=== PATIENT | female | born 1945 | race Caucasian/White ===

== ENCOUNTER 2020-02-17 12:03 | Emergency (ER) | payer MEDICARE ==
[~2020-02-17] VITALS: Ht 170.2 cm; Wt 90.0 kg
[2020-02-17 12:24] VITALS: BP 163/74
[2020-02-17 14:22] LABS: BASOPHILS % (AUTO) 0.4 % (0-1); EOSINOPHILS # (AUTO) 0.1 X10'3 (0-0.9); EOSINOPHILS % (AUTO) 1.5 % (0-6); HEMATOCRIT 41.4 % (35.0-45.0); HEMOGLOBIN 13.7 g/dl (12.0-16.0); LYMPHOCYTES # (AUTO) 1.3 X10'3 (1.1-4.8); LYMPHOCYTES % (AUTO) 18.5 % (21-51); MEAN CORPUSCULAR HEMOGLOBIN 30.8 PG (27.0-31.0); MEAN CORPUSCULAR VOLUME 93.3 FL (78-98); MEAN PLATELET VOLUME 10.8 FL (7.4-10.4); MONOCYTES # (AUTO) 0.6 X10'3 (0-0.9); MONOCYTES % (AUTO) 7.8 % (2-12); NEUTROPHILS # (AUTO) 5.2 X10'3 (1.8-7.7); NEUTROPHILS % (AUTO) 71.8 % (42-75); PLATELET COUNT 158 X10'3 (140-440); RED BLOOD COUNT 4.44 X10'6 (4.20-5.60); RED CELL DISTRIBUTION WIDTH 14.9 % (11.5-14.5); WHITE BLOOD COUNT 7.3 X10'3 (4.5-11.0)
[2020-02-17 14:35] LABS: ALANINE AMINOTRANSFERASE 42 U/L (12-78); ALBUMIN 3.9 G/DL (3.4-5.0); ALKALINE PHOSPHATASE 120 IU/L (46-116); ANION GAP 9 (8-16); ASPARTATE AMINO TRANSFERASE 67 U/L (10-37); BILIRUBIN,TOTAL 0.7 MG/DL (0.1-1.0); BLOOD UREA NITROGEN 28 MG/DL (7-18); BUN/CREATININE RATIO 34.6 (6.6-38.0); CALCIUM 9.4 MG/DL (8.5-10.1); CHLORIDE 105 MMOL/L (99-107); CREATININE 0.81 MG/DL (0.40-0.90); GLUCOSE 99 MG/DL (70-104); POTASSIUM 3.7 MMOL/L (3.5-5.1); SODIUM 143 MMOL/L (135-145); TOTAL CARBON DIOXIDE 28.7 MMOL/L (24-32); TOTAL PROTEIN 7.9 G/DL (6.4-8.2); eGFR 69 ML/MIN
--- NOTE | 2020-02-17 14:54 | NUR ---
pt is 74 yo female BIB family, pt said she started new parkinson medication 3-4 days ago and was referred to ER by PMD to make sure medication was working right, pt also went on to say her is seeing a 16yo girl, "I don't know her name but sometimes she comes in our house and I tell her to leave...I don't even know her name", pt has h/o parkinson's and admits to having hallucinations sometimes "but the 16 yo is real...", pt denies SI/HI thoughts/plans
[2020-02-17 14:57] LABS: LARGE PLATELETS FEW; PLATELET ESTIMATE NORMAL
--- NOTE | 2020-02-17 15:38 | NUR ---
called pt's , Nirmal at [phone], for med list, he is not sure what she takes, said a home health nurse helps her with meds she takes, tried calling [facility] on [facility], they only had eye gtts, and resperidone 0.25mg 1 tab q day
--- NOTE | 2020-02-17 15:39 | NUR ---
VICENTE, , CORRECT PHONE NUMBER IS [phone]
[2020-02-17] MEDS ORDERED: risperiDONE 0.5mg tablet PO ONE (16:25)
[2020-02-17] MEDS ORDERED: RISP0.5T74 PO (16:31)
--- NOTE | 2020-02-17 17:07 | NUR ---
WILL BE HERE TO PICK PT UP SOON
[2020-02-20] MEDS ORDERED: GABA-530 PO (13:05)
[2020-02-20] MEDS ORDERED: CYCL1DRO2 EACHEYE (13:05)
[2020-02-20] MEDS ORDERED: LIOT25TA12 PO (13:05)
[2020-02-20] MEDS ORDERED: RISP0.5T3 PO (13:05)
[2020-02-20] MEDS ORDERED: LISI-600 PO (13:05)
[2020-02-20] MEDS ORDERED: HYDR12.55 PO (13:05)
[2020-02-20] MEDS ORDERED: LATA2.5D2 EACHEYE (13:05)
[2020-02-20] MEDS ORDERED: OXYB10TA30 PO (13:41)
[2020-02-20] MEDS ORDERED: PRAM0.258 PO (13:41)
[2020-02-20] MEDS ORDERED: BACL5TAB PO (13:41)
[2020-02-20] MEDS ORDERED: CARB1TAB36 PO (13:41)
== END 2020-02-17 17:46 | disposition home or self-care (01) ==
LOC: ER 12:04
DX: F22 Delusional disorders (principal); I10 Essential (primary) hypertension; J44.9 Chronic obstructive pulmonary disease, unspecified; F17.200 Nicotine dependence, unspecified, uncomplicated; Z79.899 Other long term (current) drug therapy
CPT/HCPCS: 36415; 80053; 85008; 85025; 99284

== ENCOUNTER 2020-02-19 04:13 | Emergency (ER) | payer MEDICARE, OTHER ==
[~2020-02-19] VITALS: Ht 167.6 cm; Wt 65.5 kg
[~2020-02-19 04:13] MED LIST: RISP0.5T74 PO
[2020-02-19 04:17] VITALS: BP 125/78
[2020-02-20] MEDS ORDERED: RISP0.5T3 PO (13:05)
[2020-02-20] MEDS ORDERED: HYDR12.55 PO (13:05)
[2020-02-20] MEDS ORDERED: LATA2.5D2 EACHEYE (13:05)
[2020-02-20] MEDS ORDERED: LIOT25TA12 PO (13:05)
[2020-02-20] MEDS ORDERED: LISI-600 PO (13:05)
[2020-02-20] MEDS ORDERED: GABA-530 PO (13:05)
[2020-02-20] MEDS ORDERED: CYCL1DRO2 EACHEYE (13:05)
[2020-02-20] MEDS ORDERED: PRAM0.258 PO (13:41)
[2020-02-20] MEDS ORDERED: OXYB10TA30 PO (13:41)
[2020-02-20] MEDS ORDERED: BACL5TAB PO (13:41)
[2020-02-20] MEDS ORDERED: CARB1TAB36 PO (13:41)
== END 2020-02-19 06:02 | disposition home or self-care (01) ==
LOC: ER 04:13
DX: F29 Unspecified psychosis not due to a substance or known physiological condition (principal); F03.90 Unspecified dementia, unspecified severity, without behavioral disturbance, psychotic disturbance, mood disturbance, and anxiety; I10 Essential (primary) hypertension; J44.9 Chronic obstructive pulmonary disease, unspecified; Z79.899 Other long term (current) drug therapy; W06.XXXA Fall from bed, initial encounter; Y93.89 Activity, other specified; Y92.89 Other specified places as the place of occurrence of the external cause; Y99.8 Other external cause status
CPT/HCPCS: 82948; 99284